=== PATIENT | male | born 1975 | race Caucasian/White ===

== ENCOUNTER 2023-04-17 08:29 | Observation (INO) ==
[2023-04-17] MEDS ORDERED: ONDANSETRON INJ 2 MG/ML 2 ML VIAL IV STA (08:37)
[2023-04-17] MEDS ORDERED: SODIUM CHLORIDE 0.9% 1,000 ML IV STA (08:37)
[2023-04-17] MEDS ORDERED: KETOROLAC TROMETHAMINE 15 MG/ML VIAL IV ONE (08:37)
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
--- NOTE | 2023-04-17 09:21 | XRay Report ---
XR chest 1V portable HISTORY: 47 years-old Male Chest pain, nonspecific COMPARISON: None TECHNIQUE: AP view of the chest FINDINGS: Cardiac silhouette is upper limits of normal in size. No pneumothorax, pleural effusion or airspace c onsolidation. Bones appear grossly intact. IMPRESSION: No acute process. ACT 112: Negative or not required by law. The above report was generated using voice recognition software. It may contain grammatical, syntax o r spelling errors. Electronically signed by: Rolan Cotto M.D. 04/17/2023 9:19 AM
[2023-04-17 09:49] LABS: Basophils # (auto) 0.05 K/uL (0.00-0.20); Basophils % (auto) 0.8 %; Eosinophils # (auto) 0.18 K/uL (0.00-0.50); Eosinophils % (auto) 2.8 %; Hemoglobin 12.9 g/dl (14.0-18.0); Immature Granulocytes # (auto) 0.02 K/uL (0.01-0.20); Immature Granulocytes % (auto) 0.3 %; Lymphocytes # (auto) 1.31 K/uL (1.20-3.40); Lymphocytes % (auto) 20.5 %; Mean Corpuscular Hemoglobin 30.6 pg (25.0-34.0); Mean Corpuscular Hgb Conc 33.9 g/dL (32.0-36.0); Mean Corpuscular Volume 90.3 fL (80.0-100.0); Mean Platelet Volume 10.3 fL (9.4-12.4); Monocytes # (auto) 0.68 K/uL (0.11-0.59); Monocytes % (auto) 10.7 %; Neutrophils # (auto) 4.14 K/uL (1.40-6.50); Neutrophils % (auto) 64.9 %; Platelet Count 234 K/uL (130-400); RDW Coefficient of Variation 12.3 % (11.5-14.5); RDW Standard Deviation 40.8 fL (36.4-46.3); Red Blood Count 4.21 M/uL (4.70-6.10); White Blood Count 6.38 K/ul (4.8-10.8)
[2023-04-17 10:06] LABS: Alanine Aminotransferase 37 U/L (7-52); Albumin Globulin Ratio 1.4 (0.9-2); Alkaline Phosphatase 33 U/L (34-104); Anion Gap 7 (3-11); Aspartate Aminotransferase 36 U/L (13-39); BUN Creatinine Ratio 16.9 (10-20); Bilirubin,Total 0.7 mg/dl (0.2-1.0); Blood Urea Nitrogen 21 mg/dl (6-23); Calcium 9.4 mg/dl (8.6-10.3); Carbon Dioxide 25 mmol/L (21-32); Chloride 107 mmol/L (98-107); Est GFR (African American) 78.6 ml/min; Est GFR (Non-African American) 67.8 ml/min; Globulin 2.9 gm/dl (2.5-4.0); Glucose 131 mg/dl (70-99(Fasting)); Lipase 20 U/L (11-82); Potassium 3.6 mmol/L (3.5-5.1); Sodium 139 mmol/L (136-145); Total Protein 6.9 gm/dl (6.0-8.3)
[2023-04-17 10:13] LABS: Troponin I High Sensitivity 6.2 pg/ml (0-20)
[2023-04-17] MEDS ORDERED: OPTIRAY 320 500ml IV ONE ×2 (10:15→13:48)
--- NOTE | 2023-04-17 10:35 | CT Scan Report ---
CT SCAN OF THE CERVICAL SPINE CLINICAL HISTORY: Neck pain. COMPARISON STUDY: No priors. TECHNIQUE: CT scan of the cervical spine is performed from the skull base to the upper thoracic spine . Images are reviewed in the axial, sagittal, and coronal planes. IV contrast was not administered fo r this examination. A dose lowering technique was utilized adhering to the principles of ALARA. CT DOSE: 2403.19 mGy.cm FINDINGS: Skeletal structures: The skeletal structures are well mineralized. There is no evidence of fracture o r subluxation small anterior osteophytes are seen throughout. Involving the cervical spine. Vertebral body height and alignment are maintained. There is straightening of the cervical lordosis. The odon toid process and lateral masses are intact. The atlantoaxial articulation is preserved noting minimal degenerative change. The spinous processes appear intact. Intervertebral discs: There is mild disc space narrowing at C6-C7. The remaining disc spaces are main tained. Central canal: A posterior disc osteophyte complex at C6-C7 may contribute to acquired compromise of the central canal. Soft tissues: The prevertebral and paraspinous soft tissues are within normal limits. Calvarium: The visualized calvarium at the skull base appears intact. Brain parenchyma: Partially visualized brain parenchyma at the skull base is within normal limits. Sinuses and mastoids: Secretions are noted in the sphenoid sinuses. The mastoid air cells are well pn eumatized. Lung apices: Clear as visualized. IMPRESSION: No acute bony abnormality is seen involving the cervical spine. ACT 112: Negative or not required by law. Electronically signed by: Harvinder Lo M.D. 04/17/2023 10:34 AM
--- NOTE | 2023-04-17 10:47 | CT Scan Report ---
ABDOMEN AND PELVIS CT WITH IV CONTRAST HISTORY: Acute mid right-sided abdominal pain r mid abd pain TECHNIQUE: Multiaxial CT images of the abdomen and pelvis were performed following the IV administrat ion of 89 cc of Optiray, A dose lowering technique was utilized adhering to the principles of ALARA. COMPARISON STUDY: None. FINDINGS: No acute process of the imaged lower chest. Unremarkable spleen, pancreas, gallbladder and adrenal gl ands. The liver is unremarkable. Patent portal vein. Unremarkable kidneys. No hydronephrosis. Urinary bladder wall thickening with partial distention. Unremarkable abdominal aorta. No lymphadenopathy. There is no bowel obstruction, bowel wall thickening or free fluid. Noninflamed appendix within the a bdominal right lower quadrant. Unremarkable soft tissues. Small fat filled right inguinal hernia. No acute fracture. Chronic appearing lower thoracic compression deformities. IMPRESSION: 1. No acute intra-abdominal or intrapelvic abnormality. 2. No bowel obstruction or bowel wall thickening. Normal appendix. 3. Suggestion of a small fat filled right inguinal hernia. ACT 112: Negative or not required by law. The above report was generated using voice recognition software. It may contain grammatical, syntax o r spelling errors. Electronically signed by: Rolan Cotto M.D. 04/17/2023 10:45 AM
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
--- NOTE | 2023-04-17 11:12 | Electrocardiogram Report ---
Test Reason : Blood Pressure : / mmHG Vent. Rate : 050 BPM Atrial Rate : 050 BPM P-R Int : 172 ms QRS Dur : 102 ms QT Int : 474 ms P-R-T Axes : 063 076 037 degrees QTc Int : 432 ms Sinus bradycardia Otherwise normal ECG No previous ECGs available Confirmed by Darrell Neves ([id number]) on 04/17/2023 11:12:00 AM Referred By: REFERRED SELF Confirmed By:Mohsen Neves
[2023-04-17 12:39] LABS: Troponin I High Sensitivity 5.3 pg/ml (0-20)
--- NOTE | 2023-04-17 13:49 | Electrocardiogram Report ---
Test Reason : Blood Pressure : / mmHG Vent. Rate : 067 BPM Atrial Rate : 067 BPM P-R Int : 174 ms QRS Dur : 096 ms QT Int : 440 ms P-R-T Axes : 060 059 038 degrees QTc Int : 464 ms Normal sinus rhythm Incomplete right bundle branch block Borderline ECG When compared with ECG of 17-APR-2023 08:30, Incomplete right bundle branch block is now Present Confirmed by Darrell Neves ([id number]) on 04/17/2023 1:49:14 PM Referred By: REFERRED SELF Confirmed By:Mohsen Neves
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
[2023-04-17] MEDS ORDERED: ACETAMINOPHEN 325 MG TAB PO STA ×2 (14:43→16:12)
[2023-04-17] MEDS ORDERED: MoRPHine SULFATE 4 MG/ML 1 ML CARP\\VIAL IV STA (15:01)
[2023-04-17] MEDS ORDERED: LACTATED RINGER'S 1,000 ML IV ONE (15:46)
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
[2023-04-17] MEDS ORDERED: LORazepam 0.5 MG in SYRINGE 0.25 ML IV STA (16:12)
[2023-04-17] MEDS ORDERED: LIDOCAINE 5% 1 PATCH TD STA (16:12)
[2023-04-17] MEDS ORDERED: ONDANSETRON INJ 2 MG/ML 2 ML VIAL IV PRN (16:42)
[2023-04-17 17:55] LABS: Thyroid Stimulating Hormone 2.883 uIu/ml (0.300-4.500)
[2023-04-17] MEDS ORDERED: LORazepam 0.5 MG in SYRINGE 0.25 ML IV PRN (20:00)
[2023-04-17] MEDS: ACETAMINOPHEN 325 MG TAB PO PRN (20:14)
[2023-04-17] MEDS: KETOROLAC TROMETHAMINE 15 MG/ML VIAL IV PRN (21:42)
[2023-04-18] MEDS: KETOROLAC TROMETHAMINE 15 MG/ML VIAL IV PRN (06:11)
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
[2023-04-18] MEDS: ACETAMINOPHEN 325 MG TAB PO PRN (10:01)
[2023-04-18] MEDS ORDERED: oxyCODONE HCL IR 5 MG TAB (IMMEDIATE RELEASE) PO STA (10:08)
[2023-04-18 10:23] LABS: Basophils # (auto) 0.04 K/uL (0.00-0.20); Basophils % (auto) 0.6 %; Eosinophils % (auto) 1.5 %; Hematocrit (blood only) 38.6 % (42.0-52.0); Hemoglobin 13.1 g/dl (14.0-18.0); Immature Granulocytes # (auto) 0.03 K/uL (0.01-0.20); Immature Granulocytes % (auto) 0.4 %; Lymphocytes % (auto) 20.8 %; Mean Corpuscular Hemoglobin 30.8 pg (25.0-34.0); Mean Corpuscular Hgb Conc 33.9 g/dL (32.0-36.0); Mean Corpuscular Volume 90.8 fL (80.0-100.0); Monocytes # (auto) 0.64 K/uL (0.11-0.59); Monocytes % (auto) 9.5 %; Neutrophils # (auto) 4.53 K/uL (1.40-6.50); Neutrophils % (auto) 67.2 %; Platelet Count 237 K/uL (130-400); RDW Coefficient of Variation 12.7 % (11.5-14.5); RDW Standard Deviation 42.6 fL (36.4-46.3); Red Blood Count 4.25 M/uL (4.70-6.10); White Blood Count 6.74 K/ul (4.8-10.8)
[2023-04-18 10:37] LABS: Alanine Aminotransferase 40 U/L (7-52); Albumin Globulin Ratio 1.4 (0.9-2); Albumin Level 3.9 gm/dl (3.4-5.0); Alkaline Phosphatase 36 U/L (34-104); Anion Gap 7 (3-11); Aspartate Aminotransferase 32 U/L (13-39); BUN Creatinine Ratio 14.7 (10-20); Bilirubin,Total 0.6 mg/dl (0.2-1.0); Blood Urea Nitrogen 16 mg/dl (6-23); Calcium 9.2 mg/dl (8.6-10.3); Carbon Dioxide 26 mmol/L (21-32); Chloride 110 mmol/L (98-107); Est GFR (African American) 91.9 ml/min; Est GFR (Non-African American) 79.3 ml/min; Globulin 2.7 gm/dl (2.5-4.0); Glucose 81 mg/dl (70-99(Fasting)); Potassium 3.7 mmol/L (3.5-5.1); Sodium 143 mmol/L (136-145); Total Protein 6.6 gm/dl (6.0-8.3)
[2023-04-18 10:42] LABS: INR 0.9 (0.9-1.1); Prothrombin Time 10.3 Seconds (9.0-12.0)
--- NOTE | 2023-04-18 12:02 | Electrocardiogram Report ---
Test Reason : Blood Pressure : / mmHG Vent. Rate : 050 BPM Atrial Rate : 050 BPM P-R Int : 170 ms QRS Dur : 092 ms QT Int : 456 ms P-R-T Axes : 038 044 015 degrees QTc Int : 415 ms Sinus bradycardia Otherwise normal ECG When compared with ECG of 17-APR-2023 13:14, Incomplete right bundle branch block no longer present Confirmed by Jon Real ([id number]) on 04/18/2023 12:02:26 PM Referred By: REFERRED SELF Confirmed By:Jon Real
--- NOTE | 2023-04-18 12:22 | XCELERA ---
[id number]
[2023-04-18] MEDS ORDERED: ACETAMINOPHEN 325 MG TAB PO SCH (13:00)
[2023-04-18 15:23] LABS: Appearance Urine Clear (Clear); Bilirubin Urine Negative (Negative); Blood Urine Negative (Negative); Color Urine Dark Yellow; Glucose Urine UA Negative (Negative); Ketones Urine Negative (Negative); Leukocyte Esterase Urine Negative (Negative); Nitrite Urine Negative (Negative); Protein Urine Negative (Negative); Specific Gravity Urine 1.043 (1.000-1.030); Urobilinogen Urine Negative (Negative); pH Urine 5.5 (4.5-7.5)
== END 2023-04-18 17:30 | disposition home or self-care (01) ==
LOC: ED 08:29 → 2N 08:29 → SUATTDRO 15:46 → 2N 20:00